=== PATIENT | male | born 1975 | race Caucasian/White ===

== ENCOUNTER 2020-12-20 09:13 | Outpatient (CLI) | payer OTHER, SELFPAY ==
--- NOTE | 2021-01-07 13:54 | WPDHOMESLEEP ---
Sleep Study - Home Unattended Date of Study: 12/20/20 Ordering Provider: Nayan Montgomery MD Interpreting Provider: Yulissa Martínez MD Home Sleep Study Type: Watch PAT Height: 1.83 m Weight: 99.79 kg Body Mass Index: 29.8 Neck Circumference (inches): 17.5 [place]: 8 Reason for Sleep Study Snoring, fatigue, waking in the morning Sleep History Mick Rehman is a 45-year-old man who has occasional snoring but frequently it is loud enough that others complain about it. He occasionally awakens at night with heartburn, belching or coughing. He rarely awakens from sleep feeling short of breath. He occasionally has trouble sleep with a cold. He rarely wakes up gasping for breath at night. He does not have breathing problems at night observed by others. He occasionally sweats excessively at night. He does not notice his heart pounding or beating irregularly night. He does not fall asleep during the day, involuntarily, while driving or while exerting physical effort. He does not have loss of muscle tone with strong emotion. He rarely has daytime difficulties due to excessive sleepiness, works as a retail account specialist. He does not feel paralyzed on waking or falling asleep and does not have vivid dreamlike scenes upon awakening or falling asleep. He is not afraid to go to sleep. He does not have nightmares. He frequently remembers his dreams. He frequently has racing thoughts. He rarely feels sad or depressed. He occasionally has anxiety. He rarely has muscular tension. He does not notice parts of his body jerking. He does not kick at night. He does not have crawling or aching feelings in his legs. He does not have any kind of leg pain at night. He does not have morning jaw pain. He rarely grinds his teeth during sleep. He rarely is bothered by pain during the day. He is not awakened at night due to pain. He occasionally wakes up feeling stiff in the morning with sore or achy muscles. He rarely wakes up with pain in the neck and spine. He has fatigue and he takes antacids regularly due to frequent heartburn at night. he frequently awakens feeling refreshed however becomes sleepy in the day and requires naps. Normal bedtime is 10:00 p.m. falling asleep within 10-15 minutes, waking 1 or 2 times at night to urinate or smoke. He wakes the morning at 3:00 a.m. On weekends, he goes to bed between 11:00 p.m. and midnight, wakes by 8:00 a.m.. He estimates getting between 4 and 6 hours of sleep normally. He does not work split shifts. His normal work schedule is 4:00 a.m. until 2:00 p.m. He does take naps in the afternoon or evening. A short nap 10-15 minutes long may be refreshing. He is usually drowsy in the morning for 1 hour or longer. Habits: Tobacco 1 pack per day. Caffeine: for servings of coffee a day. No alcohol or recreational drugs. [facility] Past Medical History Medical History Anxiety Essential (primary) hypertension GERD without esophagitis History of syncope Tobacco use Family History Family History Other Family history of Parkinson's disease Social History Social History Smoking packs per day: 0.5 Smoking cigarettes per day: 10.0 Years smoked: 26 Smoking pack-years: 13.00 Smoking status: Current every day smoker Tobacco type: cigarettes Second hand tobacco smoke exposure: No Alcohol intake: current Substance use: never Substance use type: does not use Medications Home Medications Medication Instructions Recorded Confirmed Type sertraline 50 mg tablet 50 mg PO DAILY #90 tablet 04/07/20 10/26/20 Rx omeprazole 40 mg capsule,delayed 40 mg PO DAILY #90 cap 10/26/20 10/26/20 Rx release Sleep Procedure The sleep study was completed using [email or web address] a technically adequate device with seven channels: peripheral arterial tone, actigraphy, body position, snor
[2021-01-07 14:12] VITALS: BMI 29.8
== END 2020-12-20 09:14 | disposition home or self-care (01) ==
LOC: ANHCSM 09:14
PROVIDERS: PCP Family Medicine; Visit Provider Family Medicine
DX: G47.10 Hypersomnia, unspecified (principal); R40.0 Somnolence; R06.83 Snoring
CPT/HCPCS: 95800